=== PATIENT | male | born 1975 | race African-American/Black ===

== ENCOUNTER 2020-03-15 15:49 | Emergency (ER) | payer OTHER ==
[~2020-03-15] VITALS: Ht 182.9 cm; Wt 99.8 kg
[2020-03-15 15:49] VITALS: BP_SYST 126
--- NOTE | 2020-03-15 15:49 | NUR ---
Patient triaged and waiting on ambulance gurney. VSS and patient appears in no acute distress at this time. Accompanied by summer nanny, awaiting available bed, and MD notified of need for MSE.
--- NOTE | 2020-03-15 16:09 | NUR ---
Patient to ER hallway bed for evaluation. Side rails up. Report given to ABHISHEK Bobby.
[2020-03-15] MEDS ORDERED: MECLIZINE HCL 25 MG TABLET (ANITVERT) PO ONE (16:15)
[2020-03-15] MEDS ORDERED: METOCLOPRAMIDE HCL 10 MG/2 ML VIAL IVP ONE (16:15)
--- NOTE | 2020-03-15 16:20 | NUR ---
Otoniel Wilkerson at bedside examining patient. Pt resting well,no active nasal bleeding noted; pt is A/O x 4, answering all questions, waiting on further orders
--- NOTE | 2020-03-15 16:44 | NUR ---
Labs drawn by Phlebotomy, pt to xray via wheelchair
[2020-03-15 17:17] LABS: BASOPHILS # (AUTO) 0.1 K/uL (0.0-0.2); BASOPHILS % (AUTO) 0.8 % (0.0-2.0); EOSINOPHILS # (AUTO) 0.1 K/uL (0.0-0.4); EOSINOPHILS % (AUTO) 1.8 % (0.0-4.0); HEMATOCRIT 38.3 % (36-54); HEMOGLOBIN 12.1 g/dL (14.0-18.0); LYMPHOCYTES # (AUTO) 1.7 K/uL (1.0-5.5); LYMPHOCYTES % (AUTO) 24.8 % (20.5-51.5); MEAN CORPUSCULAR HEMOGLOBIN 26 pg (27-31); MEAN CORPUSCULAR HGB CONC 32 % (32-36); MEAN CORPUSCULAR VOLUME 84 fL (79.0-98.0); MONOCYTES # (AUTO) 0.4 K/uL (0.0-1.0); MONOCYTES % (AUTO) 5.9 % (1.7-9.3); NEUTROPHILS # (AUTO) 4.6 K/uL (1.8-7.7); NEUTROPHILS % (AUTO) 66.7 % (40.0-70.0); PLATELET COUNT (AUTO) 347 K/uL (130-430); RED BLOOD CELL COUNT(AUTO) 4.59 MIL/uL (4.2-6.2); RED CELL DISTRIBUTION WIDTH 14.3 % (9.0-15.0); WHITE BLOOD COUNT (AUTO) 6.9 K/uL (4.8-10.8)
[2020-03-15 17:25] LABS: CALCIUM 8.9 mg/dL (8.4-11.0); CREATININE 1.31 mg/dL (0.55-1.30); POTASSIUM 3.6 mmol/L (3.5-5.1)
[2020-03-15 17:27] LABS: INR 0.9 (0.80-1.20); PROTHROMBIN TIME 9.3 SECS (9.5-12.5)
[2020-03-15 17:32] LABS: ALBUMIN 3.5 g/dL (3.4-4.8); TOTAL BILIRUBIN 0.2 mg/dL (0.0-1.0)
[2020-03-15 18:09] LABS: CKMB RELATIVE INDEX 0.8 (0.0-2.9); CREATINE KINASE MB 3.4 ng/mL (0-3.6)
--- NOTE | 2020-03-15 19:30 | NUR ---
Patient given written and verbal discharge instructions and verbalizes understanding. ER MD discussed with patient the results and treatment provided. Patient in stable condition. ID arm band removed. IV catheter removed intact and dressing applied, no active bleeding. Rx of ANTIVERT given. Patient educated on pain management and to follow up with PMD. Pain Scale 2/10 Opportunity for questions provided and answered. Medication side effect fact sheet provided.
[2020-03-15 19:54] VITALS: BP_SYST 131
== END 2020-03-15 19:54 | disposition home or self-care (01) ==
LOC: SED 15:49
DX: R42 Dizziness and giddiness (principal); R51 Headache
CPT/HCPCS: 36415; 70450-TC; 71045; 80053; 82550-TC; 82553-TC; 84484; 85025; 85610-TC; 85730-TC; 93005; 99285